=== PATIENT | female | born 1975 | race African-American/Black ===

== ENCOUNTER 2021-12-23 12:13 | Emergency (ER) | payer SELFPAY ==
[~2021-12-23] VITALS: Ht 182.9 cm; Wt 93.4 kg
[2021-12-23] MEDS ORDERED: IBUPROFEN 600 MG TAB PO STA (12:41)
[2021-12-23] MEDS ORDERED: MOTRIN800 MG PEG (13:32)
== END 2021-12-23 13:47 | disposition home or self-care (01) ==
LOC: ER 12:33
DX: S06.0X0A Concussion without loss of consciousness, initial encounter (principal); W50.0XXA Accidental hit or strike by another person, initial encounter; Y99.0 Civilian activity done for income or pay
CPT/HCPCS: 70450; 70486; 99283